=== PATIENT | male | born 1960 | race Caucasian/White ===

== ENCOUNTER → 2018-09-28 | Outpatient (CLI) | payer OTHER ==
[~2018-09-28] VITALS: Ht 172.7 cm; Wt 136.1 kg
[~2018-09-28] MED LIST: CRESTOR20 MG PO; DEMADEX20 MG PO; KLOR-CON 1010 MEQ PO; PREDNISONE 20 M20 MG PO; PROTONIX40 M1 PO; SINGULAIR 10 MG10 M1 PO; TRELEGY ELLIPT1 EACH INH; VENTOLIN HFA 1818 GM INH
--- NOTE | ~2018-09-28 | CATHLAB ---
[facility] [address] [place] [address] INVASIVE PROCEDURE REPORT Name: MANOLO MOSES LUIZ [id number] Admission: 09/28/18 Attend Phys: Miguel Angel Duffy, Discharge: Date of : 62 Date of Service: 09/28/18 0852 Report #: [id number] THIS REPORT FOR: //name// APPROVED REPORT Study performed: 09/28/2018 07:17:54 Patient Details Patient Status: Out-Patient Room #: The patient is a 58 year-old male Event Personnel Miguel Angel Duffy Deputy Director Of Nursing, Micaela Shah RN RN, Yandy Louise RTR, YI Scrmartha, Yandy Louise RTR, ADOBE FLEX DEVELOPER Scrmartha, Pam Dean Monitor Procedures Performed Art Access - R femoral artery* Left Heart Cath w/or w/o Coronaries [id number] [facility] [id number] Initial Mod Sed Same Phys/QHP Gr 529153 66896 Mod Sed Same Phys/QHP Ea 355348 Hemostasis w/ Mynx Indication Chest pain Procedure Narrative The Right Groin^ was infiltrated with 1% Lidocaine subcutaneous anesthesia. A PINNACLE 6FR Sheath #[id number] sheath was inserted into the RFA 6F^. Coronary angiography was performed using coronary diagnostic catheters. The right coronary system was accessed and visualized with a JR4 catheter. The left coronary system was accessed and visualized with a JL4 catheter. The left ventricle was accessed and visualized with a ANGLE PIG catheter. The patient tolerated the procedure well and there were no complications associated with the procedure. There was no hematoma. Intraoperative Conscious Sedation Sedation start time: 0800 Case end Time: 0830 Fentanyl 25 mcg Versed 1 mg Fluoro Time: 1.27 minutes Dose: DAP 4894.30 cGycm2 527 mGy Contrast Type and Amount: Omnipaque 60 ml Diagnostic Cath [facility] [place] [address] INVASIVE PROCEDURE REPORT Name: MANOLO MOSES Room #: [facility] [id number] Admission: 09/28/18 Attend Phys: Miguel Angel Duffy, Discharge: Date of : 62 Date of Service: 09/28/18 0852 Report #: [id number] Left Main Large, normal left main LAD 20-30% proximal to mid LAD plaquing 50-60% stenosis, distal third of LAD Diagonal 1 Large first diagonal branch, angiographically normal Circumflex Large, nondominant circumflex, angiographically normal OM1 Large OM1, angiographically normal Right Coronary Dominant right coronary. Mild scattered plaquing R PDA Large posterior descending, angiographically normal RPLV Large posterior lateral branch, angiographically normal Left Ventriculography The left ventricle is normal in size with normal contractility. The left ventricular ejection fraction is estimated to be 60-65%. Left ventricular wall motion abnormalities are not present. There is 1+ mitral insufficiency. Hemodynamics The aortic pressure is 91/45 mmHg with a mean of 69 mmHg. The left ventricular pressure is 128/-2 mmHg with a mean of mmHg. The left ventricular end diastolic pressure is 11 mmHg. Conclusion 1. Normal global and regional left ventricular systolic function. Ejection fraction 65% 2. Normal left main 3. Moderate scattered mid and distal LAD plaquing 4. Normal circumflex and right coronary arteries. Right coronary dominant circulation Recommendations Aggressive Medical Therapy Weight Loss Reduction Program <ELECTRONICALLY SIGNED> By: Miguel Angel Duffy MD, FACC 09/28/1852 1 1 Miguel Angel Duffy MD, FACC /INF
[2018-09-28 07:05] VITALS: BP 137/77
== END | disposition home or self-care (01) ==
LOC: CATH 06:32
DX: I25.10 Atherosclerotic heart disease of native coronary artery without angina pectoris (principal); I11.0 Hypertensive heart disease with heart failure; I50.30 Unspecified diastolic (congestive) heart failure; E11.9 Type 2 diabetes mellitus without complications; G47.33 Obstructive sleep apnea (adult) (pediatric); E78.5 Hyperlipidemia, unspecified; E66.9 Obesity, unspecified; Z79.899 Other long term (current) drug therapy; Z88.8 Allergy status to other drugs, medicaments and biological substances; Z98.890 Other specified postprocedural states; Z82.49 Family history of ischemic heart disease and other diseases of the circulatory system

== ENCOUNTER 2021-01-08 12:44 | Emergency (ER) | payer OTHER ==
[~2021-01-08] VITALS: Ht 172.7 cm; Wt 135.2 kg
[2021-01-08 13:50] LABS: ABSOLUTE NEUTROPHILS 3.2 thou/uL (1.4-8.2); BASOPHILS 0.6 % (0.0-2.0); EOSINOPHILS 0.9 % (0.0-3.0); HEMATOCRIT 39.7 % (42.0-52.0); HEMOGLOBIN 13.3 gm/dL (14.0-18.0); LYMPHOCYTES 22.5 % (24.0-44.0); MCH 30.7 pg (26.0-34.0); MCHC 33.6 g/dL (28.0-37.0); MCV 91.2 fL (80.0-100.0); MONOCYTES 6.1 % (1.0-8.0); PLATELET COUNT 161 thou/uL (150-400); POLYS 69.9 % (36.0-66.0); RBC 4.35 mil/uL (4.50-6.00); RDW 14.2 % (10.5-14.5); WBC 4.6 thou/uL (4.0-11.0)
[2021-01-08 14:03] LABS: ANION GAP 11 mmol/L (7-16); BUN 9 mg/dL (7-18); CALCIUM 7.9 mg/dL (8.5-10.1); CHLORIDE 105 mmol/L (98-107); CO2 29 mmol/L (21-32); GLUCOSE 187 mg/dL (74-106); POTASSIUM 3.2 mmol/L (3.5-5.1); SODIUM 145 mmol/L (136-145)
[2021-01-08 14:13] LABS: ALBUMIN 2.9 g/dL (3.4-5.0); SGOT 25 U/L (15-37); SGPT 37 U/L (16-63); TOTAL BILIRUBIN 0.3 mg/dL (0.2-1.0); TOTAL PROTEIN 6.5 g/dL (6.4-8.2); TROPONIN-I <0.06 ng/mL (<0.06)
[2021-01-08 15:16] VITALS: BP 125/65
[2021-01-08] MEDS ORDERED: VENTOLIN HFA INH8 GM INH (15:25)
[2021-01-08] MEDS ORDERED: ZPAK PO (15:25)
[2021-01-08] MEDS ORDERED: MEDROLDOSEPACK PO (15:25)
[2021-01-08] MEDS ORDERED: TESSALON PERLE100 MG PO (15:25)
== END 2021-01-08 15:41 | disposition home or self-care (01) ==
LOC: ER 12:44
PROVIDERS: Nurse Practitioner Family
DX: U07.1 COVID-19 (principal); J12.82 Pneumonia due to coronavirus disease 2019; E87.6 Hypokalemia; I11.0 Hypertensive heart disease with heart failure; I50.9 Heart failure, unspecified; E11.9 Type 2 diabetes mellitus without complications; Z79.899 Other long term (current) drug therapy; Z88.0 Allergy status to penicillin

== ENCOUNTER 2021-01-10 05:52 | Emergency (ER) | payer OTHER ==
[~2021-01-10] VITALS: Ht 172.7 cm; Wt 135.2 kg
[~2021-01-10 05:52] MED LIST changes: +MEDROLDOSEPACK PO; +TESSALON PERLE100 MG PO; +VENTOLIN HFA INH8 GM INH; +ZPAK PO
[2021-01-10] MEDS ORDERED: CODEINE-GUAIFE120 ML PO (07:53)
[2021-01-10] MEDS ORDERED: DECADRON4 MG PO (07:58)
[2021-01-10 08:17] VITALS: BP 147/86
== END 2021-01-10 08:19 | disposition home or self-care (01) ==
LOC: ER 05:52
DX: U07.1 COVID-19 (principal); J12.82 Pneumonia due to coronavirus disease 2019; I11.0 Hypertensive heart disease with heart failure; I50.9 Heart failure, unspecified; E11.9 Type 2 diabetes mellitus without complications; Z79.899 Other long term (current) drug therapy; Z88.0 Allergy status to penicillin

== ENCOUNTER 2021-01-12 01:55 | Inpatient (IN) | payer OTHER ==
[2021-01-12] VITALS (33 sets, daily range): BP systolic 104–141; BP diastolic 53–85
[~2021-01-12] VITALS: Ht 172.7 cm; Wt 120.5 kg
--- NOTE | ~2021-01-12 | EKG ---
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: GAYATRI : 1960 Requested By: Jose Alegria Order Number: [id number] MD: Measurements Intervals [place] Rate: 158 P: [place]: QRS: -78 QRSD: 91 T: 238 QT: 333 QTc: 540 Interpretive Statements Atrial flutter with predominant 2:1 AV block Ventricular premature complex RSR' in V1 or V2, right VCD or RVH Inferior infarct, age indeterminate Lateral leads are also involved Prolonged QT interval Baseline wander in lead(s) V2,V5 Compared to ECG 01/29/2021 20:06:30 2:1 AV block now present Ventricular premature complex(es) now present Right ventricular hypertrophy now present RSR' in V1 or V2 now present Myocardial infarct finding now present Prolonged QT interval now present Atrial fibrillation no longer present Q waves no longer present T-wave abnormality no longer present [email or web address] By: 1140 1140 Epiphany MD Ricki /ANTELMO
[~2021-01-12 01:55] MED LIST changes: +CODEINE-GUAIFE120 ML PO; +DECADRON4 MG PO
[2021-01-12 02:26] LABS: ABSOLUTE NEUTROPHILS 7.2 thou/uL (1.4-8.2); BASOPHILS 0.2 % (0.0-2.0); HEMATOCRIT 41.5 % (42.0-52.0); HEMOGLOBIN 13.8 gm/dL (14.0-18.0); LYMPHOCYTES 11.6 % (24.0-44.0); MCH 30.4 pg (26.0-34.0); MCHC 33.2 g/dL (28.0-37.0); MCV 91.7 fL (80.0-100.0); MONOCYTES 4.6 % (1.0-8.0); PLATELET COUNT 269 thou/uL (150-400); POLYS 83.6 % (36.0-66.0); RBC 4.53 mil/uL (4.50-6.00); RDW 14.4 % (10.5-14.5); WBC 8.6 thou/uL (4.0-11.0)
[2021-01-12 02:27] LABS: ANION GAP 8 mmol/L (7-16); BUN 17 mg/dL (7-18); CALCIUM 8.5 mg/dL (8.5-10.1); CHLORIDE 102 mmol/L (98-107); CO2 28 mmol/L (21-32); CREATININE 1.1 mg/dL (0.7-1.3); GLUCOSE 130 mg/dL (74-106); POTASSIUM 4.2 mmol/L (3.5-5.1); SODIUM 138 mmol/L (136-145)
[2021-01-12 02:37] LABS: ALBUMIN 2.9 g/dL (3.4-5.0); SGOT 42 U/L (15-37); SGPT 46 U/L (16-63); TOTAL BILIRUBIN 0.7 mg/dL (0.2-1.0); TOTAL PROTEIN 7.4 g/dL (6.4-8.2); TROPONIN-I <0.06 ng/mL (<0.06)
[2021-01-12 02:45] LABS: BE(vivo) 2.5 mmol/L (-2 to +3); HCO3 26.3 mmol/L (22.0-26.0); PCO2 38.1 mmHg (35.0-45.0); PO2 93.5 mmHg (80.0-100.0); pH 7.457 (7.360-7.450); sO2 97.5 % (92.0-98.0)
[2021-01-12 06:17] LABS: INR 0.94; PROTIME 10.3 Seconds (9.3-11.4)
[2021-01-12 07:28] LABS: URINE BILIRUBIN NEGATIVE (Negative); URINE BLOOD NEGATIVE (Negative); URINE CLARITY CLEAR; URINE COLOR YELLOW; URINE GLUCOSE-RANDOM* NEGATIVE (Negative); URINE KETONES NEGATIVE (Negative); URINE LEUKOCYTES-REFLEX NEGATIVE (Negative); URINE NITRITE-REFLEX NEGATIVE (Negative); URINE PROTEIN (DIPSTICK) NEGATIVE (Negative); URINE UROBILINOGEN 0.2 E.U./dl (0.2-1.0)
--- NOTE | 2021-01-12 12:40 | EKG ---
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: am : 1960 Requested By: Masha Cherry Order Number: [id number] MD: Miguel Angel Duffy Measurements Intervals [place] Rate: 97 P: 55 MO: 149 QRS: -10 QRSD: 81 T: 26 QT: 329 QTc: 418 Interpretive Statements Sinus rhythm RSR' in V1 or V2, right VCD No previous ECG available for comparison Electronically Signed On 01-12-2021 12:40:27 CDT by Miguel Angel Duffy [email or web address] <ELECTRONICALLY SIGNED> By: Miguel Angel Duffy MD, [facility] 01/12/21 1240 0236 0236 Miguel Angel Duffy MD, FACC /EPI
[2021-01-13] VITALS (23 sets, daily range): BP systolic 90–134; BP diastolic 39–86
[2021-01-13 05:12] LABS: HEMATOCRIT 40.8 % (42.0-52.0); HEMOGLOBIN 13.4 gm/dL (14.0-18.0); MCH 30.3 pg (26.0-34.0); MCHC 32.8 g/dL (28.0-37.0); MCV 92.3 fL (80.0-100.0); RBC 4.42 mil/uL (4.50-6.00); RDW 14.9 % (10.5-14.5); WBC 5.3 thou/uL (4.0-11.0)
[2021-01-13 05:16] LABS: DIRECT BILIRUBIN 0.2 mg/dL (<0.1-0.2); PHOSPHORUS 4.1 mg/dL (2.5-4.9)
[2021-01-13 05:20] LABS: ALBUMIN 2.7 g/dL (3.4-5.0); CALCIUM 7.8 mg/dL (8.5-10.1); CREATININE 1.1 mg/dL (0.7-1.3); POTASSIUM 3.6 mmol/L (3.5-5.1); TOTAL BILIRUBIN 0.5 mg/dL (0.2-1.0); TOTAL PROTEIN 6.5 g/dL (6.4-8.2)
--- NOTE | 2021-01-13 11:56 | HC ---
[facility] [place] [address] CONSULTATION Name: MANOLO MOSES Room #: 236-P ADM IN M.R.#: [id number] Admission: 01/12/21 Attend Phys: Raimundo Murray Discharge: Date of : 62 Report #: [id number] THIS REPORT FOR: cc: Julian Tatum MD, John H. MD Barry, Joseph W. MD ~ DATE OF SERVICE: 01/12/2021 INFECTIOUS DISEASE CONSULTATION ATTENDING PHYSICIAN: Dr. Murray. REASON FOR EVALUATION: COVID-19 infection, complicated by pneumonitis, respiratory failure. HISTORY OF PRESENT ILLNESS: Chart reviewed, patient examined. This is a 60-year-old with history of diabetes mellitus, obstructive sleep apnea, does have cardiomyopathy as well, who became ill last week and developed some fevers, cough, initially tested for COVID-19, which proved to be positive on the 2nd. He was evaluated 3 times of the Emergency Room, the second, fourth and today had progressive signs and symptoms in spite of corticosteroids, systemic antibacterials, found to have temperature in excess of 101.5, progressive dyspnea, now requiring supplemental oxygen high flow, high concentration at 50 liters per minute, FiO2 of 50%. He is in the ICU. Generally, he is lucid. He denies significant pain at this point. Does have productive cough of colored sputum. Denies any anorexia or poor p.o. intake. Denies any gastrointestinal-related complaints. He was empirically started on broad-spectrum therapy in addition to ivermectin and remdesivir. He is continued on methylprednisolone, given a dose of albuterol and levofloxacin. ALLERGIES: Listed to PENICILLIN ____ throat swells. CURRENT MEDICATIONS: In addition, noted above, montelukast, torsemide, alteplase, insulin lispro sliding scale, pantoprazole, benzonatate, hydrocodone, diphenhydramine. PAST MEDICAL HISTORY: As described above, history of diabetes mellitus type 2, hypertension, has cardiomyopathy, obstructive sleep apnea, history of asthma. SOCIAL HISTORY: Nonsmoker, occasional ethanol, no illicit drug use. FAMILY HISTORY: Noncontributory. REVIEW OF SYSTEMS: Otherwise unremarkable with the exception of the above. [facility] [address] [place] [address] CONSULTATION Name: MANOLO MOSES Room #: [facility] IN M.R.#: [id number] Admission: 01/12/21 Attend Phys: Raimundo Murray Discharge: Date of : 62 Report #: [id number] PHYSICAL EXAMINATION: GENERAL: He is in moderate distress. He is generally lucid. He is obese. He is reasonably well nourished. VITAL SIGNS: Temperature 98.5, T-max overnight 100.6, pulse 86, respirations 26, blood pressure 140/73. SKIN: Warm, dry, no rashes. HEENT: Nasal cannula in place. Extraocular muscles intact. NECK: Supple. LUNGS: Scattered coarse breath sounds. HEART: Generally regular. ABDOMEN: Mildly distended, somewhat firm, nontender. EXTREMITIES: No cyanosis. GENITOURINARY AND RECTAL: Deferred. LABORATORY DATA: Urinalysis unremarkable. CTA chest PE protocol, question of small pulmonary emboli, no large emboli, extensive diffuse bilateral pulmonary alveolar infiltrates. Lactic acid 1.6. Procalcitonin less than 0.05. ABGs; pH 7.457, pCO2 of 31, pO2 of 93.5, FiO2 of 85%. ProBNP of 205. D-dimer 1.01. Electrolytes: Sodium 138, potassium 4.2, chloride 102, bicarbonate 20, anion gap of 8, BUN and creatinine 17 and 1.1, glucose of 130. AST of 42, ALT of 46, albumin 2.9, total protein 7.4. Estimated GFR of 69. CBC: White count of 8.6, H and H 13.8 and 41.5, platelets of 269. Blood cultures collected on the 2nd reported sterile thus far. ASSESSMENT: 1. COVID-19 infection, complicated by pneumonitis and respiratory failure with acute respiratory distress syndrome. 2. Diabetes mellitus. 3. Cardiomyopathy with congestive heart failure. 4. Asthma. 5. Obesity. We will continue broad-spectrum therapy directed ____ toward the coronavirus and give Actemra. In addition to the corticosteroids, also add vitamins as well as continue antibacterials, may have secondary bacterial pneumonitis. We will await sputum culture results. He remains quite tenuous at this point. Continue to monitor expectantly. Wean off support as allowed. <ELECTRONICALLY SIGNED> By: Jose Cortes MD 01/13/21 1156 0857 1018 Jose Cortes MD /nt
[2021-01-14] VITALS (24 sets, daily range): BP systolic 96–118; BP diastolic 50–78
[2021-01-14 04:56] LABS: BE(vivo) 6.7 mmol/L (-2 to +3); HCO3 31.9 mmol/L (22.0-26.0); PCO2 47.1 mmHg (35.0-45.0); PO2 84.2 mmHg (80.0-100.0); pH 7.448 (7.360-7.450); sO2 96.6 % (92.0-98.0)
[2021-01-14 05:16] LABS: BASOPHILS 0.2 % (0.0-2.0); HEMATOCRIT 41.8 % (42.0-52.0); HEMOGLOBIN 13.7 gm/dL (14.0-18.0); LYMPHOCYTES 5.8 % (24.0-44.0); MCH 30.1 pg (26.0-34.0); MCHC 32.7 g/dL (28.0-37.0); MONOCYTES 6.2 % (1.0-8.0); PLATELET COUNT 336 thou/uL (150-400); POLYS 87.8 % (36.0-66.0); RBC 4.54 mil/uL (4.50-6.00); RDW 14.3 % (10.5-14.5); WBC 9.1 thou/uL (4.0-11.0)
[2021-01-14 05:51] LABS: ALBUMIN 2.5 g/dL (3.4-5.0); CREATININE 1.1 mg/dL (0.7-1.3); DIRECT BILIRUBIN 0.1 mg/dL (<0.1-0.2); PHOSPHORUS 4.3 mg/dL (2.5-4.9); POTASSIUM 3.5 mmol/L (3.5-5.1); TOTAL BILIRUBIN 0.4 mg/dL (0.2-1.0); TOTAL PROTEIN 6.8 g/dL (6.4-8.2)
[2021-01-14 22:06] LABS: GLYCOHEMOGLOBIN (HGB A1C) 7.7 % (4.8-5.6)
[2021-01-15] VITALS (24 sets, daily range): BP systolic 95–135; BP diastolic 31–93
[2021-01-15 05:19] LABS: ALBUMIN 2.5 g/dL (3.4-5.0); CREATININE 1.2 mg/dL (0.7-1.3); DIRECT BILIRUBIN 0.2 mg/dL (<0.1-0.2); PHOSPHORUS 4.3 mg/dL (2.5-4.9); POTASSIUM 3.5 mmol/L (3.5-5.1); TOTAL BILIRUBIN 0.5 mg/dL (0.2-1.0); TOTAL PROTEIN 6.6 g/dL (6.4-8.2)
[2021-01-16] VITALS (22 sets, daily range): BP systolic 113–145; BP diastolic 62–99
[2021-01-16 05:30] LABS: ALBUMIN 2.7 g/dL (3.4-5.0); CALCIUM 8.3 mg/dL (8.5-10.1); CREATININE 1.2 mg/dL (0.7-1.3); DIRECT BILIRUBIN 0.2 mg/dL (<0.1-0.2); PHOSPHORUS 4.3 mg/dL (2.5-4.9); POTASSIUM 3.4 mmol/L (3.5-5.1); TOTAL BILIRUBIN 0.7 mg/dL (0.2-1.0); TOTAL PROTEIN 6.8 g/dL (6.4-8.2)
[2021-01-17] VITALS (24 sets, daily range): BP systolic 113–137; BP diastolic 65–86
[2021-01-17 05:17] LABS: ALBUMIN 2.7 g/dL (3.4-5.0); CALCIUM 8.3 mg/dL (8.5-10.1); CREATININE 1.2 mg/dL (0.7-1.3); PHOSPHORUS 3.9 mg/dL (2.5-4.9); POTASSIUM 3.3 mmol/L (3.5-5.1)
[2021-01-18] VITALS (19 sets, daily range): BP systolic 87–130; BP diastolic 44–80
[2021-01-18 09:29] LABS: HEMATOCRIT 45.4 % (42.0-52.0); HEMOGLOBIN 15.1 gm/dL (14.0-18.0); MCH 30.2 pg (26.0-34.0); MCHC 33.3 g/dL (28.0-37.0); MCV 90.8 fL (80.0-100.0); PLATELET COUNT 325 thou/uL (150-400); RDW 13.8 % (10.5-14.5); WBC 18.7 thou/uL (4.0-11.0)
[2021-01-18 10:03] LABS: ABSOLUTE NEUTROPHILS 17.2 thou/uL (1.4-8.2); PLATELET ESTIMATE NORMAL
[2021-01-18 10:05] LABS: ALBUMIN 2.7 g/dL (3.4-5.0); CALCIUM 8.8 mg/dL (8.5-10.1); CREATININE 1.2 mg/dL (0.7-1.3); POTASSIUM 3.6 mmol/L (3.5-5.1); TOTAL BILIRUBIN 0.9 mg/dL (0.2-1.0); TOTAL PROTEIN 6.6 g/dL (6.4-8.2)
[2021-01-19 04:14] VITALS: BP 118/48
[2021-01-19 06:59] VITALS: BP 126/77
[2021-01-19 15:19] VITALS: BP 112/65
[2021-01-19 20:04] VITALS: BP 128/78
[2021-01-20 04:45] VITALS: BP 128/71
[2021-01-20 07:33] VITALS: BP 112/61
[2021-01-20 11:09] LABS: BE(vivo) 4.8 mmol/L (-2 to +3); HCO3 28.5 mmol/L (22.0-26.0); PCO2 38.9 mmHg (35.0-45.0); pH 7.483 (7.360-7.450); sO2 90.2 % (92.0-98.0)
[2021-01-20 11:10] LABS: PO2 53.8 mmHg (80.0-100.0)
[2021-01-20 13:08] LABS: HEMATOCRIT 42.9 % (42.0-52.0); HEMOGLOBIN 14.2 gm/dL (14.0-18.0); MCH 30.3 pg (26.0-34.0); MCHC 33.2 g/dL (28.0-37.0); MCV 91.5 fL (80.0-100.0); RBC 4.68 mil/uL (4.50-6.00); RDW 14.3 % (10.5-14.5); WBC 20.1 thou/uL (4.0-11.0)
[2021-01-20 15:53] VITALS: BP 113/60
[2021-01-20 19:47] VITALS: BP 129/84
[2021-01-21 04:33] VITALS: BP 111/65
[2021-01-21 07:22] VITALS: BP 124/84
[2021-01-21 15:07] LABS: HEMATOCRIT 44.6 % (42.0-52.0); HEMOGLOBIN 14.8 gm/dL (14.0-18.0); MCH 30.3 pg (26.0-34.0); MCHC 33.2 g/dL (28.0-37.0); MCV 91.2 fL (80.0-100.0); RBC 4.89 mil/uL (4.50-6.00); RDW 14.1 % (10.5-14.5); WBC 21.1 thou/uL (4.0-11.0)
[2021-01-21 15:18] LABS: CALCIUM 8.3 mg/dL (8.5-10.1); CREATININE 1.3 mg/dL (0.7-1.3)
[2021-01-21 15:52] VITALS: BP 109/69
[2021-01-21 19:06] VITALS: BP 130/76
[2021-01-22 03:48] VITALS: BP 115/67
[2021-01-22 07:20] VITALS: BP 137/85
[2021-01-22 09:21] LABS: HEMOGLOBIN 14.7 gm/dL (14.0-18.0); MCHC 32.6 g/dL (28.0-37.0); MCV 91.9 fL (80.0-100.0); PLATELET COUNT 215 thou/uL (150-400); RDW 14.4 % (10.5-14.5); WBC 21.1 thou/uL (4.0-11.0)
[2021-01-22 10:24] LABS: ABSOLUTE NEUTROPHILS 20.3 thou/uL (1.4-8.2)
[2021-01-22 10:28] LABS: ANISOCYTOSIS SLIGHT
[2021-01-22 15:13] VITALS: BP 109/76
[2021-01-22 19:45] VITALS: BP 101/69
[2021-01-23] VITALS (21 sets, daily range): BP systolic 95–135; BP diastolic 51–81
[2021-01-23 00:02] LABS: BE(vivo) 7.9 mmol/L (-2 to +3); HCO3 34.1 mmol/L (22.0-26.0); PCO2 52.6 mmHg (35.0-45.0); PO2 58.2 mmHg (80.0-100.0); pH 7.429 (7.360-7.450); sO2 90.5 % (92.0-98.0)
[2021-01-23 04:13] LABS: MAGNESIUM 2.3 mg/dL (1.8-2.4); POTASSIUM 3.8 mmol/L (3.5-5.1)
[2021-01-24] VITALS (24 sets, daily range): BP systolic 99–160; BP diastolic 48–111
[2021-01-24 04:36] LABS: HEMATOCRIT 44.1 % (42.0-52.0); HEMOGLOBIN 14.3 gm/dL (14.0-18.0); MCH 29.8 pg (26.0-34.0); MCHC 32.3 g/dL (28.0-37.0); MCV 92.3 fL (80.0-100.0); RBC 4.78 mil/uL (4.50-6.00); RDW 14.3 % (10.5-14.5); WBC 18.2 thou/uL (4.0-11.0)
[2021-01-24 05:19] LABS: ALBUMIN 2.3 g/dL (3.4-5.0); CALCIUM 7.9 mg/dL (8.5-10.1); MAGNESIUM 2.6 mg/dL (1.8-2.4); PHOSPHORUS 3.8 mg/dL (2.5-4.9); POTASSIUM 4.1 mmol/L (3.5-5.1); TOTAL BILIRUBIN 0.6 mg/dL (0.2-1.0); TOTAL PROTEIN 5.3 g/dL (6.4-8.2)
[2021-01-25] VITALS (115 sets, daily range): BP systolic 83–155; BP diastolic 46–86
[2021-01-25 05:44] LABS: CALCIUM 8.3 mg/dL (8.5-10.1); POTASSIUM 4.4 mmol/L (3.5-5.1)
[2021-01-25 05:48] LABS: MAGNESIUM 2.6 mg/dL (1.8-2.4); PHOSPHORUS 3.9 mg/dL (2.5-4.9)
[2021-01-25 13:27] LABS: HEMATOCRIT 45.3 % (42.0-52.0); HEMOGLOBIN 14.6 gm/dL (14.0-18.0); MCH 30.4 pg (26.0-34.0); MCHC 32.3 g/dL (28.0-37.0); MCV 94.3 fL (80.0-100.0); PLATELET COUNT 181 thou/uL (150-400); RDW 14.9 % (10.5-14.5); WBC 20.9 thou/uL (4.0-11.0)
[2021-01-25 14:06] LABS: ABSOLUTE NEUTROPHILS 19.9 thou/uL (1.4-8.2)
[2021-01-25 15:08] LABS: BE(vivo) -0.6 mmol/L (-2 to +3); HCO3 28.7 mmol/L (22.0-26.0); PCO2 68.3 mmHg (35.0-45.0); PO2 85.6 mmHg (80.0-100.0); pH 7.242 (7.360-7.450); sO2 94.5 % (92.0-98.0)
[2021-01-25 17:53] LABS: BE(vivo) -2.3 mmol/L (-2 to +3); PCO2 73.7 mmHg (35.0-45.0); PO2 67.3 mmHg (80.0-100.0); pH 7.198 (7.360-7.450); sO2 88.2 % (92.0-98.0)
[2021-01-25 20:55] LABS: BE(vivo) -0.7 mmol/L (-2 to +3); HCO3 28.7 mmol/L (22.0-26.0); PCO2 68.2 mmHg (35.0-45.0); PO2 77.5 mmHg (80.0-100.0); pH 7.242 (7.360-7.450); sO2 92.9 % (92.0-98.0)
[2021-01-25 23:10] LABS: D-DIMER 14.29 ug/mLFEU (0.19-0.50); INR 1.24; PROTIME 13.4 Seconds (9.3-11.4)
[2021-01-26] VITALS (94 sets, daily range): BP systolic 89–133; BP diastolic 49–70
[2021-01-26 00:59] LABS: BE(vivo) -1.7 mmol/L (-2 to +3); HCO3 28.1 mmol/L (22.0-26.0); PCO2 70.2 mmHg (35.0-45.0); PO2 92.5 mmHg (80.0-100.0); sO2 95.3 % (92.0-98.0)
[2021-01-26 05:16] LABS: HEMATOCRIT 45.2 % (42.0-52.0); HEMOGLOBIN 14.4 gm/dL (14.0-18.0); MCH 30.3 pg (26.0-34.0); MCHC 31.8 g/dL (28.0-37.0); MCV 95.2 fL (80.0-100.0); RBC 4.74 mil/uL (4.50-6.00); WBC 27.3 thou/uL (4.0-11.0)
[2021-01-26 05:38] LABS: CALCIUM 7.8 mg/dL (8.5-10.1); MAGNESIUM 2.6 mg/dL (1.8-2.4); PHOSPHORUS 5.2 mg/dL (2.5-4.9)
[2021-01-26 05:40] LABS: POTASSIUM 5.4 mmol/L (3.5-5.1)
[2021-01-26 14:13] LABS: BE(vivo) -1.7 mmol/L (-2 to +3); PCO2 88.4 mmHg (35.0-45.0); PO2 90.2 mmHg (80.0-100.0); pH 7.148 (7.360-7.450); sO2 93.8 % (92.0-98.0)
[2021-01-26 21:43] LABS: BE(vivo) 6.2 mmol/L (-2 to +3); HCO3 35.9 mmol/L (22.0-26.0); PCO2 77.3 mmHg (35.0-45.0); PO2 125.7 mmHg (80.0-100.0); pH 7.285 (7.360-7.450)
[2021-01-27] VITALS (72 sets, daily range): BP systolic 83–122; BP diastolic 42–68
[2021-01-27 03:16] LABS: HEMATOCRIT 42.7 % (42.0-52.0); HEMOGLOBIN 13.5 gm/dL (14.0-18.0); MCH 29.6 pg (26.0-34.0); MCHC 31.5 g/dL (28.0-37.0); MCV 93.9 fL (80.0-100.0); PLATELET COUNT 103 thou/uL (150-400); RBC 4.54 mil/uL (4.50-6.00); RDW 14.8 % (10.5-14.5); WBC 20.9 thou/uL (4.0-11.0)
[2021-01-27 03:35] LABS: MAGNESIUM 2.5 mg/dL (1.8-2.4)
[2021-01-27 03:36] LABS: ALBUMIN 2.2 g/dL (3.4-5.0); CALCIUM 7.8 mg/dL (8.5-10.1); CREATININE 0.7 mg/dL (0.7-1.3); POTASSIUM 4.6 mmol/L (3.5-5.1); TOTAL BILIRUBIN 0.5 mg/dL (0.2-1.0); TOTAL PROTEIN 4.8 g/dL (6.4-8.2)
[2021-01-27 05:02] LABS: BE(vivo) 3.1 mmol/L (-2 to +3); HCO3 31.2 mmol/L (22.0-26.0); PCO2 63.3 mmHg (35.0-45.0); PO2 97.9 mmHg (80.0-100.0); sO2 96.7 % (92.0-98.0)
[2021-01-27 11:24] LABS: ABSOLUTE NEUTROPHILS 19.9 thou/uL (1.4-8.2)
[2021-01-27 11:25] LABS: ANISOCYTOSIS 1+
[2021-01-28] VITALS (81 sets, daily range): BP systolic 79–134; BP diastolic 43–67
[2021-01-28 05:08] LABS: BE(vivo) 4.5 mmol/L (-2 to +3); HCO3 33.1 mmol/L (22.0-26.0); PCO2 69.7 mmHg (35.0-45.0); PO2 86.8 mmHg (80.0-100.0); sO2 95.3 % (92.0-98.0)
[2021-01-28 05:09] LABS: pH 7.295 (7.360-7.450)
[2021-01-28 05:24] LABS: HEMATOCRIT 40.2 % (42.0-52.0); HEMOGLOBIN 12.9 gm/dL (14.0-18.0); MCH 30.4 pg (26.0-34.0); MCHC 32.2 g/dL (28.0-37.0); MCV 94.5 fL (80.0-100.0); RBC 4.25 mil/uL (4.50-6.00); RDW 14.7 % (10.5-14.5); WBC 16.1 thou/uL (4.0-11.0)
[2021-01-28 06:07] LABS: CALCIUM 8.3 mg/dL (8.5-10.1); CREATININE 0.8 mg/dL (0.7-1.3); POTASSIUM 4.9 mmol/L (3.5-5.1)
--- NOTE | 2021-01-28 08:44 | EKG ---
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 : 1960 Requested By: Raimunod Murray Order Number: [id number] MD: Miguel Angel Duffy Measurements Intervals [place] Rate: 151 P: [place]: QRS: 51 QRSD: 69 T: QT: 339 QTc: 538 Interpretive Statements Atrial fibrillation Low voltage, precordial leads Nonspecific ST and T wave abnormality Prolonged QT interval Baseline wander in lead(s) V1 Compared to ECG 01/12/2021 02:36:19 Prolonged QT interval now present Sinus rhythm no longer present Electronically Signed On 01-28-2021 8:44:21 CDT by Miguel Angel Duffy [email or web address] <ELECTRONICALLY SIGNED> By: Miguel Angel Duffy MD, [facility] 01/28/21 0844 [id number] 2323 Miguel Angel Duffy MD, [facility] /EPI
[2021-01-29] VITALS (41 sets, daily range): BP systolic 100–157; BP diastolic 50–82
[2021-01-29 04:34] LABS: BE(vivo) 8.5 mmol/L (-2 to +3); HCO3 35.8 mmol/L (22.0-26.0); PCO2 62.7 mmHg (35.0-45.0); PO2 82.5 mmHg (80.0-100.0); pH 7.375 (7.360-7.450); sO2 95.6 % (92.0-98.0)
[2021-01-29 11:00] LABS: ABSOLUTE NEUTROPHILS 12.5 thou/uL (1.4-8.2); BASOPHILS 0.3 % (0.0-2.0); HEMATOCRIT 37.1 % (42.0-52.0); HEMOGLOBIN 11.8 gm/dL (14.0-18.0); LYMPHOCYTES 1.8 % (24.0-44.0); MCH 29.9 pg (26.0-34.0); MCHC 31.9 g/dL (28.0-37.0); MCV 93.9 fL (80.0-100.0); MONOCYTES 4.7 % (1.0-8.0); PLATELET COUNT 96 thou/uL (150-400); POLYS 93.2 % (36.0-66.0); RBC 3.96 mil/uL (4.50-6.00); RDW 14.6 % (10.5-14.5); WBC 13.4 thou/uL (4.0-11.0)
[2021-01-29 11:08] LABS: ALBUMIN 2.1 g/dL (3.4-5.0); CALCIUM 8.3 mg/dL (8.5-10.1); CREATININE 0.6 mg/dL (0.7-1.3); POTASSIUM 4.4 mmol/L (3.5-5.1); TOTAL BILIRUBIN 0.4 mg/dL (0.2-1.0); TOTAL PROTEIN 4.6 g/dL (6.4-8.2)
[2021-01-30] VITALS (48 sets, daily range): BP systolic 93–159; BP diastolic 53–85
[2021-01-30 09:21] LABS: ABSOLUTE NEUTROPHILS 13.8 thou/uL (1.4-8.2); HEMATOCRIT 36.2 % (42.0-52.0); HEMOGLOBIN 11.9 gm/dL (14.0-18.0); LYMPHOCYTES 1.2 % (24.0-44.0); MCH 30.6 pg (26.0-34.0); MCHC 32.8 g/dL (28.0-37.0); MCV 93.2 fL (80.0-100.0); MONOCYTES 4.8 % (1.0-8.0); PLATELET COUNT 82 thou/uL (150-400); RBC 3.89 mil/uL (4.50-6.00); RDW 14.8 % (10.5-14.5); WBC 14.8 thou/uL (4.0-11.0)
[2021-01-30 09:34] LABS: CALCIUM 8.2 mg/dL (8.5-10.1); CREATININE 0.7 mg/dL (0.7-1.3); POTASSIUM 4.7 mmol/L (3.5-5.1); TOTAL BILIRUBIN 0.5 mg/dL (0.2-1.0); TOTAL PROTEIN 4.8 g/dL (6.4-8.2)
--- NOTE | 2021-01-30 11:14 | EKG ---
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: FSCHWALBE : 1960 Requested By: Juan Luis Thomas Order Number: [id number] MD: Miguel Angel Duffy Measurements Intervals [place] Rate: 127 P: [place]: QRS: 57 QRSD: 78 T: 51 QT: 306 QTc: 445 Interpretive Statements Atrial fibrillation Small septal Q waves Nonspecific T wave abnormality Compared to ECG 01/27/2021 23:23:16 QT interval has shortened Electronically Signed On 01-30-2021 11:14:19 CDT by Miguel Angel Duffy [email or web address] <ELECTRONICALLY SIGNED> By: Miguel Angel Duffy MD, [facility] 01/30/21 1114 05 05 Miguel Angel Duffy MD, FACC /EPI
[2021-01-31] VITALS (48 sets, daily range): BP systolic 97–138; BP diastolic 50–74
[2021-01-31 06:31] LABS: HEMATOCRIT 33.9 % (42.0-52.0); HEMOGLOBIN 11.3 gm/dL (14.0-18.0); MCH 31.2 pg (26.0-34.0); MCHC 33.3 g/dL (28.0-37.0); MCV 93.6 fL (80.0-100.0); RBC 3.62 mil/uL (4.50-6.00); RDW 14.8 % (10.5-14.5); WBC 12.6 thou/uL (4.0-11.0)
[2021-01-31 09:58] LABS: ABSOLUTE NEUTROPHILS 11.8 thou/uL (1.4-8.2); ANISOCYTOSIS SLIGHT
[2021-01-31 10:02] LABS: PLATELET COUNT 93 thou/uL (150-400)
[2021-02-01] VITALS (37 sets, daily range): BP systolic 92–126; BP diastolic 48–79
[2021-02-01 20:12] LABS: BE(vivo) 7.9 mmol/L (-2 to +3); HCO3 33.6 mmol/L (22.0-26.0); PCO2 51.9 mmHg (35.0-45.0); PO2 79.7 mmHg (80.0-100.0); pH 7.429 (7.360-7.450); sO2 95.9 % (92.0-98.0)
[2021-02-02] VITALS (48 sets, daily range): BP systolic 96–150; BP diastolic 55–85
[2021-02-02 10:26] LABS: HEMATOCRIT 35.4 % (42.0-52.0); HEMOGLOBIN 11.7 gm/dL (14.0-18.0); MCHC 33.1 g/dL (28.0-37.0); MCV 93.7 fL (80.0-100.0); PLATELET COUNT 75 thou/uL (150-400); RBC 3.78 mil/uL (4.50-6.00); RDW 14.8 % (10.5-14.5); WBC 11.4 thou/uL (4.0-11.0)
[2021-02-02 11:02] LABS: ALBUMIN 1.9 g/dL (3.4-5.0); CREATININE 0.6 mg/dL (0.7-1.3); POTASSIUM 4.9 mmol/L (3.5-5.1); TOTAL BILIRUBIN 0.5 mg/dL (0.2-1.0); TOTAL PROTEIN 4.8 g/dL (6.4-8.2)
[2021-02-02 11:22] LABS: ABSOLUTE NEUTROPHILS 10.6 thou/uL (1.4-8.2)
[2021-02-02 11:23] LABS: PLATELET ESTIMATE DECREASED
[2021-02-03] VITALS (52 sets, daily range): BP systolic 84–134; BP diastolic 33–85
[2021-02-03 11:25] LABS: ALBUMIN 1.7 g/dL (3.4-5.0); CALCIUM 7.1 mg/dL (8.5-10.1); CREATININE 0.8 mg/dL (0.7-1.3); POTASSIUM 4.3 mmol/L (3.5-5.1); TOTAL PROTEIN 4.3 g/dL (6.4-8.2)
[2021-02-04] VITALS (27 sets, daily range): BP systolic 85–119; BP diastolic 35–78
[2021-02-04 19:07] LABS: BE(vivo) 9.1 mmol/L (-2 to +3); HCO3 34.2 mmol/L (22.0-26.0); PCO2 49.2 mmHg (35.0-45.0); PO2 84.3 mmHg (80.0-100.0); sO2 96.7 % (92.0-98.0)
[2021-02-05] VITALS (24 sets, daily range): BP systolic 87–131; BP diastolic 42–70
[2021-02-05 04:55] LABS: BE(vivo) 9.3 mmol/L (-2 to +3); HCO3 34.1 mmol/L (22.0-26.0); PCO2 47.4 mmHg (35.0-45.0); PO2 68.3 mmHg (80.0-100.0); pH 7.475 (7.360-7.450); sO2 94.6 % (92.0-98.0)
[2021-02-05 22:11] LABS: HEMATOCRIT 34.7 % (42.0-52.0); HEMOGLOBIN 11.6 gm/dL (14.0-18.0); MCH 31.5 pg (26.0-34.0); MCHC 33.6 g/dL (28.0-37.0); MCV 93.7 fL (80.0-100.0); PLATELET COUNT 113 thou/uL (150-400)
[2021-02-05 22:25] LABS: INR 0.98; PROTIME 10.7 Seconds (10.5-12.1)
[2021-02-05 23:05] LABS: ABSOLUTE NEUTROPHILS 7.8 thou/uL (1.4-8.2); METAMYELOCYTES 2 %; MYELOCYTES 1 %
[2021-02-06] VITALS (29 sets, daily range): BP systolic 88–141; BP diastolic 34–81
[2021-02-07] VITALS (224 sets, daily range): BP systolic 79–138; BP diastolic 34–70
[2021-02-07 10:52] LABS: BE(vivo) 11.5 mmol/L (-2 to +3); HCO3 38.2 mmol/L (22.0-26.0); PCO2 60.2 mmHg (35.0-45.0); PO2 73.2 mmHg (80.0-100.0); sO2 94.6 % (92.0-98.0)
[2021-02-08] VITALS (157 sets, daily range): BP systolic 84–145; BP diastolic 36–77
[2021-02-08 10:38] LABS: ALBUMIN 2.5 g/dL (3.4-5.0); CALCIUM 8.4 mg/dL (8.5-10.1); CREATININE 0.5 mg/dL (0.7-1.3); POTASSIUM 4.2 mmol/L (3.5-5.1); TOTAL BILIRUBIN 0.7 mg/dL (0.2-1.0); TOTAL PROTEIN 5.4 g/dL (6.4-8.2)
[2021-02-09] VITALS (24 sets, daily range): BP systolic 94–125; BP diastolic 42–65
[2021-02-09 04:55] LABS: HEMATOCRIT 35.7 % (42.0-52.0); HEMOGLOBIN 11.5 gm/dL (14.0-18.0); MCH 30.4 pg (26.0-34.0); MCHC 32.1 g/dL (28.0-37.0); MCV 94.8 fL (80.0-100.0); RBC 3.77 mil/uL (4.50-6.00); RDW 15.3 % (10.5-14.5); WBC 11.4 thou/uL (4.0-11.0)
[2021-02-09 09:07] LABS: ALBUMIN 2.7 g/dL (3.4-5.0); CALCIUM 8.5 mg/dL (8.5-10.1); CREATININE 0.5 mg/dL (0.7-1.3); POTASSIUM 4.1 mmol/L (3.5-5.1); TOTAL BILIRUBIN 0.8 mg/dL (0.2-1.0); TOTAL PROTEIN 5.3 g/dL (6.4-8.2)
[2021-02-09 09:53] LABS: URINE BILIRUBIN NEGATIVE (Negative); URINE BLOOD TRACE (Negative); URINE CLARITY CLEAR; URINE COLOR YELLOW; URINE GLUCOSE-RANDOM* NEGATIVE (Negative); URINE KETONES NEGATIVE (Negative); URINE PROTEIN (DIPSTICK) TRACE (Negative); URINE SPECIFIC GRAVITY 1.015 (1.005-1.035); URINE UROBILINOGEN 0.2 E.U./dl (0.2-1.0)
[2021-02-09 09:56] LABS: URINE LEUKOCYTES-REFLEX 1+ (Negative); URINE NITRITE-REFLEX POSITIVE (Negative)
[2021-02-09 10:07] LABS: SQUAMOUS 0-3 Few /LPF (0-3)
[2021-02-09 10:08] LABS: CASTS None Seen /LPF (None Seen); MUCUS 0-3 Light strn/LPF (None Seen)
[2021-02-09 10:12] LABS: CRYSTALS None Seen /LPF (None Seen); URINE RBC 1-2 Rare /HPF (NONE SEEN); URINE WBC-REFLEX 6-15 Few /HPF (0-5); YEAST-REFLEX Present (None Seen)
[2021-02-10] VITALS (24 sets, daily range): BP systolic 101–143; BP diastolic 49–84
[2021-02-10 05:26] LABS: BE(vivo) 13.6 mmol/L (-2 to +3); HCO3 39.7 mmol/L (22.0-26.0); pH 7.461 (7.360-7.450); sO2 95.1 % (92.0-98.0)
[2021-02-10 05:48] LABS: HEMATOCRIT 33.1 % (42.0-52.0); MCH 31.4 pg (26.0-34.0); MCHC 33.1 g/dL (28.0-37.0); MCV 94.7 fL (80.0-100.0); RBC 3.49 mil/uL (4.50-6.00); RDW 15.6 % (10.5-14.5); WBC 10.7 thou/uL (4.0-11.0)
[2021-02-10 06:13] LABS: CALCIUM 8.5 mg/dL (8.5-10.1); CREATININE 0.4 mg/dL (0.7-1.3); POTASSIUM 4.1 mmol/L (3.5-5.1)
[2021-02-11] VITALS (35 sets, daily range): BP systolic 85–137; BP diastolic 38–89
[2021-02-11 05:13] LABS: HEMATOCRIT 35.6 % (42.0-52.0); HEMOGLOBIN 11.6 gm/dL (14.0-18.0); MCH 30.8 pg (26.0-34.0); MCHC 32.4 g/dL (28.0-37.0); RBC 3.75 mil/uL (4.50-6.00); RDW 15.6 % (10.5-14.5); WBC 11.5 thou/uL (4.0-11.0)
[2021-02-11 05:28] LABS: CALCIUM 7.9 mg/dL (8.5-10.1); CREATININE 0.5 mg/dL (0.7-1.3); POTASSIUM 3.5 mmol/L (3.5-5.1)
--- NOTE | 2021-02-11 15:24 | 2DMMODE ---
[facility] [place] [address] 2 D/M-MODE ECHOCARDIOGRAM Name: MANOLO MOSES Room #: 241-P ADM IN M.R.#: [id number] Admission: 01/12/21 Attend Phys: Raimundo Murray Discharge: Date of : 62 Report #: [id number] THIS REPORT FOR: cc: Julian Tatum MD, John H. MD Lundgren, Craig H. MD [facility] ~ APPROVED REPORT Study performed: 02/11/2021 13:04:07 EXAM: Comprehensive 2D, Doppler, and color-flow Echocardiogram Patient Location: ICU Room #: 241 Status: routine BSA: 2.28 HR: 85 bpm Rhythm: Atrial Flutter Other Information Study Quality: Adequate Indications Atrial Fibrillation Hx: HTN, DM, CHF. 2D Dimensions RVDd: 37.06 mm IVSd: 10.92 (7-11mm) LVOT Diam: 22.69 (18-24mm) LVDd: 54.39 mm PWd: 10.59 (7-11mm) Ascending Ao: 31.26 (22-36mm) LVDs: 36.38 (25-40mm) Left Atrium: 34.68 (27-40mm) Aortic Root: 33.75 mm Volumes Left Atrial Volume (Systole) Single Plane 4CH: 90.64 mL Single Plane 2CH: 45.13 mL LA ESV Index: 31.00 mL/m2 Aortic Valve AoV Peak Tunde.: 1.34 m/s AO Peak Gr.: 7.15 mmHg LVOT Max P.27 mmHg LVOT Max V: 1.15 m/s [facility] [address] [place] [address] 2 D/M-MODE ECHOCARDIOGRAM Name: AURELIAMANOLOCLARA DEE Room #: 241-P [facility] IN .R.#: [id number] Admission: 01/12/21 Attend Phys: Raimundo De Paz Discharge: Date of : 62 Report #: [id number] LADI Vmax: 3.47 cm2 Pulmonary Valve PV Peak Tunde.: 1.56 m/s PV Peak Gr.: 9.71 mmHg Tricuspid Valve RAP Estimate: 15.00 mmHg Left Ventricle The left ventricle is normal size. There is normal LV segmental wall motion. There is normal left ventricular wall thickness. The left ventricular systolic function is normal. LVEF is 55-60%. This study is not technically sufficient to allow evaluation of the LV diastolic function due to atrial flutter. Right Ventricle The right ventricle is normal size. The right ventricular systolic function is normal. Atria The left atrium size is normal. The right atrium size is normal. Aortic Valve Aortic valve is not well visualized. No aortic regurgitation is present. There is no aortic valvular stenosis. Mitral Valve The mitral valve is normal in structure. Trace mitral regurgitation. No evidence of mitral valve stenosis. Tricuspid Valve The tricuspid valve is normal in structure. There is no tricuspid valve regurgitation noted. Pulmonic Valve The pulmonary valve is normal in structure. Trace pulmonic regurgitation. Great Vessels The aortic root is normal in size. IVC is dilated and collapses <50% with inspiration. Pericardium There is no pericardial effusion. [facility] [address] [address] 2 D/M-MODE ECHOCARDIOGRAM Name: MANOLO MOSES Room #: 241-P ADM IN .R.#: [id number] Admission: 01/12/21 Attend Phys: Raimundo De Paz Discharge: Date of : 62 Report #: [id number] <Conclusion> Technically difficult study The left ventricular systolic function is normal. There is normal LV segmental wall motion. LVEF is 55-60%. Aortic valve is not well visualized. No aortic regurgitation or stenosis The mitral valve is normal in structure. Trace mitral regurgitation. Pulmonary artery pressure could not be reliably ascertained There is no pericardial effusion. <ELECTRONICALLY SIGNED> By: Miguel Angel Duffy MD, FACC 02/11/21 1523 152 152 Miguel Angel Duffy MD, FACC /INF
[2021-02-12] VITALS (12 sets, daily range): BP systolic 84–120; BP diastolic 55–74
[2021-02-13] VITALS (23 sets, daily range): BP systolic 91–153; BP diastolic 51–81
[2021-02-13 04:42] LABS: HEMATOCRIT 36.2 % (42.0-52.0); HEMOGLOBIN 11.5 gm/dL (14.0-18.0); MCH 30.4 pg (26.0-34.0); MCHC 31.9 g/dL (28.0-37.0); MCV 95.3 fL (80.0-100.0); RBC 3.8 mil/uL (4.50-6.00); RDW 15.3 % (10.5-14.5); WBC 11.7 thou/uL (4.0-11.0)
[2021-02-13 05:08] LABS: CALCIUM 8.6 mg/dL (8.5-10.1); CREATININE 0.4 mg/dL (0.7-1.3); POTASSIUM 4.4 mmol/L (3.5-5.1)
[2021-02-14] VITALS (21 sets, daily range): BP systolic 96–159; BP diastolic 51–87
[2021-02-14 06:44] LABS: HEMATOCRIT 33.4 % (42.0-52.0); HEMOGLOBIN 10.7 gm/dL (14.0-18.0); MCH 30.8 pg (26.0-34.0); MCHC 32.1 g/dL (28.0-37.0); MCV 95.7 fL (80.0-100.0); PLATELET COUNT 187 thou/uL (150-400); RBC 3.49 mil/uL (4.50-6.00); RDW 15.6 % (10.5-14.5); WBC 12.4 thou/uL (4.0-11.0)
[2021-02-14 06:59] LABS: ALBUMIN 2.3 g/dL (3.4-5.0); CALCIUM 8.4 mg/dL (8.5-10.1); CREATININE 0.4 mg/dL (0.7-1.3); POTASSIUM 4.3 mmol/L (3.5-5.1); TOTAL BILIRUBIN 0.8 mg/dL (0.2-1.0); TOTAL PROTEIN 5.5 g/dL (6.4-8.2)
[2021-02-14 09:36] LABS: ABSOLUTE NEUTROPHILS 11.4 thou/uL (1.4-8.2); METAMYELOCYTES 1 %; MYELOCYTES 1 %
[2021-02-14 09:37] LABS: ANISOCYTOSIS 1+
[2021-02-15] VITALS (23 sets, daily range): BP systolic 95–170; BP diastolic 48–90
[2021-02-15 06:33] LABS: HEMATOCRIT 33.9 % (42.0-52.0); HEMOGLOBIN 11.1 gm/dL (14.0-18.0); MCH 30.9 pg (26.0-34.0); MCHC 32.9 g/dL (28.0-37.0); MCV 94.2 fL (80.0-100.0); RBC 3.6 mil/uL (4.50-6.00); RDW 15.8 % (10.5-14.5); WBC 12.3 thou/uL (4.0-11.0)
[2021-02-15 11:45] LABS: CALCIUM 8.5 mg/dL (8.5-10.1); CREATININE 0.4 mg/dL (0.7-1.3); MAGNESIUM 1.9 mg/dL (1.8-2.4); POTASSIUM 3.6 mmol/L (3.5-5.1)
[2021-02-15 13:44] LABS: BE(vivo) 11.9 mmol/L (-2 to +3); HCO3 38.4 mmol/L (22.0-26.0); PCO2 58.7 mmHg (35.0-45.0); PO2 63.5 mmHg (80.0-100.0); pH 7.434 (7.360-7.450); sO2 92.4 % (92.0-98.0)
[2021-02-16] VITALS (22 sets, daily range): BP systolic 93–148; BP diastolic 48–75
[2021-02-16 04:39] LABS: BE(vivo) 12.3 mmol/L (-2 to +3); HCO3 39.1 mmol/L (22.0-26.0); PCO2 61.1 mmHg (35.0-45.0); PO2 64.4 mmHg (80.0-100.0); pH 7.424 (7.360-7.450); sO2 92.4 % (92.0-98.0)
[2021-02-16 06:03] LABS: HEMATOCRIT 34.7 % (42.0-52.0); HEMOGLOBIN 11.5 gm/dL (14.0-18.0); MCH 31.2 pg (26.0-34.0); MCHC 33.2 g/dL (28.0-37.0); MCV 93.7 fL (80.0-100.0); RBC 3.7 mil/uL (4.50-6.00); RDW 15.9 % (10.5-14.5); WBC 13.7 thou/uL (4.0-11.0)
[2021-02-16 06:17] LABS: CALCIUM 8.3 mg/dL (8.5-10.1); CREATININE 0.4 mg/dL (0.7-1.3); POTASSIUM 3.7 mmol/L (3.5-5.1)
[2021-02-16 11:49] LABS: DIRECT BILIRUBIN 0.4 mg/dL (<0.1-0.2); TOTAL BILIRUBIN 1.2 mg/dL (0.2-1.0); TOTAL PROTEIN 5.4 g/dL (6.4-8.2)
[2021-02-17] VITALS (23 sets, daily range): BP systolic 96–161; BP diastolic 49–82
[2021-02-17 04:31] LABS: CALCIUM 8.3 mg/dL (8.5-10.1); CREATININE 0.4 mg/dL (0.7-1.3); POTASSIUM 4.4 mmol/L (3.5-5.1)
[2021-02-17 04:38] LABS: HEMATOCRIT 31.2 % (42.0-52.0); HEMOGLOBIN 10.2 gm/dL (14.0-18.0); MCHC 32.7 g/dL (28.0-37.0); MCV 94.8 fL (80.0-100.0); RBC 3.29 mil/uL (4.50-6.00); RDW 16.4 % (10.5-14.5); WBC 11.9 thou/uL (4.0-11.0)
[2021-02-17 04:54] LABS: BE(vivo) 4.6 mmol/L (-2 to +3); HCO3 33.3 mmol/L (22.0-26.0); PCO2 72.5 mmHg (35.0-45.0); PO2 69.1 mmHg (80.0-100.0); sO2 90.9 % (92.0-98.0)
[2021-02-18] VITALS (36 sets, daily range): BP systolic 95–153; BP diastolic 45–84
[2021-02-18 04:47] LABS: HEMATOCRIT 31.3 % (42.0-52.0); RBC 3.23 mil/uL (4.50-6.00); RDW 16.3 % (10.5-14.5); WBC 11.5 thou/uL (4.0-11.0)
[2021-02-18 04:55] LABS: CALCIUM 8.5 mg/dL (8.5-10.1); CREATININE 0.5 mg/dL (0.7-1.3); POTASSIUM 4.7 mmol/L (3.5-5.1)
[2021-02-19] VITALS (49 sets, daily range): BP systolic 90–156; BP diastolic 43–81
[2021-02-19 05:09] LABS: HEMATOCRIT 29.6 % (42.0-52.0); HEMOGLOBIN 9.6 gm/dL (14.0-18.0); MCH 31.9 pg (26.0-34.0); MCHC 32.6 g/dL (28.0-37.0); MCV 97.9 fL (80.0-100.0); RBC 3.02 mil/uL (4.50-6.00); RDW 16.2 % (10.5-14.5); WBC 8.5 thou/uL (4.0-11.0)
[2021-02-19 05:18] LABS: CALCIUM 8.2 mg/dL (8.5-10.1); CREATININE 0.5 mg/dL (0.7-1.3); POTASSIUM 4.5 mmol/L (3.5-5.1)
[2021-02-20] VITALS (36 sets, daily range): BP systolic 99–152; BP diastolic 54–85
[2021-02-20 04:41] LABS: HEMATOCRIT 29.5 % (42.0-52.0); HEMOGLOBIN 9.5 gm/dL (14.0-18.0); MCH 31.4 pg (26.0-34.0); MCHC 32.3 g/dL (28.0-37.0); MCV 97.2 fL (80.0-100.0); RBC 3.04 mil/uL (4.50-6.00); RDW 15.7 % (10.5-14.5); WBC 10.1 thou/uL (4.0-11.0)
[2021-02-20 05:01] LABS: BUN 22 mg/dL (7-18); CALCIUM 7.4 mg/dL (8.5-10.1); CHLORIDE 103 mmol/L (98-107); CREATININE 0.4 mg/dL (0.7-1.3); GLUCOSE 131 mg/dL (74-106); SODIUM 150 mmol/L (136-145); TRIGLYCERIDE 319 mg/dL (<150)
[2021-02-20 05:03] LABS: CO2 > 45 mmol/L (21-32); POTASSIUM 2.8 mmol/L (3.5-5.1)
[2021-02-20 08:41] LABS: BE(vivo) 25.2 mmol/L (-2 to +3); HCO3 56.8 mmol/L (22.0-26.0); PO2 106.6 mmHg (80.0-100.0); sO2 96.8 % (92.0-98.0)
[2021-02-20 08:43] LABS: PCO2 115.5 mmHg (35.0-45.0)
[2021-02-21] VITALS (41 sets, daily range): BP systolic 90–144; BP diastolic 41–73
[2021-02-22] VITALS (36 sets, daily range): BP systolic 100–150; BP diastolic 50–82
[2021-02-22 04:18] LABS: HEMATOCRIT 27.7 % (42.0-52.0); HEMOGLOBIN 8.9 gm/dL (14.0-18.0); MCH 30.7 pg (26.0-34.0); MCHC 32.1 g/dL (28.0-37.0); MCV 95.5 fL (80.0-100.0); PLATELET COUNT 144 thou/uL (150-400); WBC 12.4 thou/uL (4.0-11.0)
[2021-02-22 04:31] LABS: BUN 27 mg/dL (7-18); CALCIUM 7.6 mg/dL (8.5-10.1); CHLORIDE 101 mmol/L (98-107); CREATININE 0.3 mg/dL (0.7-1.3); GLUCOSE 155 mg/dL (74-106); POTASSIUM 3.5 mmol/L (3.5-5.1); SGOT 80 U/L (15-37); SGPT 290 U/L (30-65); SODIUM 150 mmol/L (136-145); TOTAL BILIRUBIN 1.5 mg/dL (0.2-1.0)
[2021-02-22 04:32] LABS: CO2 > 45 mmol/L (21-32)
[2021-02-22 04:42] LABS: BE(vivo) 21.2 mmol/L (-2 to +3); HCO3 49.1 mmol/L (22.0-26.0); PCO2 77.3 mmHg (35.0-45.0); PO2 69.5 mmHg (80.0-100.0); pH 7.421 (7.360-7.450); sO2 93.3 % (92.0-98.0)
[2021-02-22 05:09] LABS: ABSOLUTE NEUTROPHILS 11.5 thou/uL (1.4-8.2); METAMYELOCYTES 1 %; NUCLEATED RBCS 3 /100WBC
[2021-02-22 05:10] LABS: ANISOCYTOSIS 1+; POLYCHROMASIA 1+
[2021-02-23] VITALS (93 sets, daily range): BP systolic 95–148; BP diastolic 20–81
[2021-02-23 04:51] LABS: BE(vivo) 26.6 mmol/L (-2 to +3); HCO3 55.5 mmol/L (22.0-26.0); PO2 73.1 mmHg (80.0-100.0); sO2 93.7 % (92.0-98.0)
[2021-02-23 04:52] LABS: PCO2 89.5 mmHg (35.0-45.0)
[2021-02-23 04:54] LABS: HEMOGLOBIN 8.8 gm/dL (14.0-18.0); RDW 16.3 % (10.5-14.5)
[2021-02-23 04:57] LABS: HEMATOCRIT 26.9 % (42.0-52.0); MCH 31.8 pg (26.0-34.0); MCHC 32.7 g/dL (28.0-37.0); MCV 97.2 fL (80.0-100.0); PLATELET COUNT 137 thou/uL (150-400); RBC 2.77 mil/uL (4.50-6.00); WBC 10.9 thou/uL (4.0-11.0)
[2021-02-23 05:10] LABS: ALBUMIN 2.2 g/dL (3.4-5.0); BUN 27 mg/dL (7-18); CALCIUM 7.6 mg/dL (8.5-10.1); CHLORIDE 101 mmol/L (98-107); CREATININE 0.4 mg/dL (0.7-1.3); GLUCOSE 164 mg/dL (74-106); POTASSIUM 3.7 mmol/L (3.5-5.1); SGOT 84 U/L (15-37); SGPT 316 U/L (30-65); SODIUM 150 mmol/L (136-145); TOTAL BILIRUBIN 1.9 mg/dL (0.2-1.0); TOTAL PROTEIN 5.1 g/dL (6.4-8.2)
[2021-02-23 05:26] LABS: CO2 > 45 mmol/L (21-32)
[2021-02-23 08:22] LABS: BE(vivo) 30.2 mmol/L (-2 to +3); HCO3 58.3 mmol/L (22.0-26.0); pH 7.487 (7.360-7.450); sO2 88.1 % (92.0-98.0)
[2021-02-23 08:23] LABS: PCO2 78.8 mmHg (35.0-45.0); PO2 53.7 mmHg (80.0-100.0)
[2021-02-23 08:55] LABS: ABSOLUTE NEUTROPHILS 10.1 thou/uL (1.4-8.2); NUCLEATED RBCS 5 /100WBC; PLATELET ESTIMATE NORMAL
[2021-02-24] VITALS (24 sets, daily range): BP systolic 107–157; BP diastolic 48–90
[2021-02-24 13:36] LABS: HEMATOCRIT 30.2 % (42.0-52.0); HEMOGLOBIN 9.6 gm/dL (14.0-18.0); MCH 30.9 pg (26.0-34.0); MCHC 31.9 g/dL (28.0-37.0); RBC 3.12 mil/uL (4.50-6.00); RDW 16.8 % (10.5-14.5); WBC 14.8 thou/uL (4.0-11.0)
[2021-02-24 13:40] LABS: BUN 26 mg/dL (7-18); CALCIUM 8.1 mg/dL (8.5-10.1); CHLORIDE 98 mmol/L (98-107); CREATININE 0.4 mg/dL (0.7-1.3); GLUCOSE 245 mg/dL (74-106); MAGNESIUM 2.2 mg/dL (1.8-2.4); POTASSIUM 4.1 mmol/L (3.5-5.1); SODIUM 145 mmol/L (136-145)
[2021-02-24 13:44] LABS: CO2 > 45 mmol/L (21-32)
[2021-02-25] VITALS (87 sets, daily range): BP systolic 61–153; BP diastolic 27–79
[2021-02-25 03:56] LABS: BE(vivo) 25.6 mmol/L (-2 to +3); HCO3 53.2 mmol/L (22.0-26.0); PO2 80.7 mmHg (80.0-100.0); pH 7.464 (7.360-7.450); sO2 95.9 % (92.0-98.0)
[2021-02-25 03:58] LABS: PCO2 75.8 mmHg (35.0-45.0)
[2021-02-25 05:01] LABS: HEMATOCRIT 27.4 % (42.0-52.0); HEMOGLOBIN 8.8 gm/dL (14.0-18.0); MCH 30.9 pg (26.0-34.0); MCHC 32.1 g/dL (28.0-37.0); MCV 96.5 fL (80.0-100.0); PLATELET COUNT 160 thou/uL (150-400); RBC 2.84 mil/uL (4.50-6.00); RDW 16.5 % (10.5-14.5); WBC 13.1 thou/uL (4.0-11.0)
[2021-02-25 05:31] LABS: ALBUMIN 2.4 g/dL (3.4-5.0); BUN 24 mg/dL (7-18); CALCIUM 8.1 mg/dL (8.5-10.1); CHLORIDE 98 mmol/L (98-107); CREATININE 0.4 mg/dL (0.7-1.3); GLUCOSE 264 mg/dL (74-106); POTASSIUM 3.8 mmol/L (3.5-5.1); SGOT 52 U/L (15-37); SGPT 302 U/L (16-63); SODIUM 142 mmol/L (136-145); TOTAL BILIRUBIN 1.6 mg/dL (0.2-1.0); TOTAL PROTEIN 5.4 g/dL (6.4-8.2)
[2021-02-25 05:45] LABS: CO2 > 45 mmol/L (21-32)
[2021-02-25 08:51] LABS: ABSOLUTE NEUTROPHILS 12.4 thou/uL (1.4-8.2); NUCLEATED RBCS 1 /100WBC; PLATELET ESTIMATE NORMAL
[2021-02-26] VITALS (116 sets, daily range): BP systolic 44–141; BP diastolic 15–111
[2021-02-26 06:21] LABS: HEMATOCRIT 34.8 % (42.0-52.0)
[2021-02-26 06:23] LABS: MCH 30.8 pg (26.0-34.0); MCHC 31.9 g/dL (28.0-37.0); MCV 96.7 fL (80.0-100.0); RBC 3.6 mil/uL (4.50-6.00); RDW 17.7 % (10.5-14.5); WBC 8.6 thou/uL (4.0-11.0)
[2021-02-26 06:28] LABS: HEMOGLOBIN 11.1 gm/dL (14.0-18.0)
[2021-02-26 06:32] LABS: CALCIUM 8.4 mg/dL (8.5-10.1); POTASSIUM 5.6 mmol/L (3.5-5.1)
[2021-02-26 06:40] LABS: CREATININE 1.4 mg/dL (0.7-1.3)
[2021-02-26 06:42] LABS: BE(vivo) 9.9 mmol/L (-2 to +3); HCO3 38.9 mmol/L (22.0-26.0); PCO2 77.9 mmHg (35.0-45.0); PO2 56.5 mmHg (80.0-100.0); pH 7.316 (7.360-7.450); sO2 85.4 % (92.0-98.0)
== END 2021-02-26 12:10 | DRG 4 ==
LOC: ER 01:55 → ICU 04:06 → EROBS 04:06 → ICU 04:48 → 3W 01-18 18:19 → ICU 01-22 22:43
PROVIDERS: Emergency Medicine; Hospitalist; Internal Medicine; Internal Medicine Pulmonary Disease; Nurse Practitioner; Nurse Practitioner Family; Pediatrics; Specialist; ADMIT Hospitalist; ATTEND Hospitalist
PROC: XW033E5 Introduction of Remdesivir Anti-infective into Peripheral Vein, Percutaneous Approach, New Technology Group 5 (ICD-10-PCS; 2021-01-12)
PROC: 02HV33Z Insertion of Infusion Device into Superior Vena Cava, Percutaneous Approach (ICD-10-PCS; 2021-01-12)
PROC: 5A09357 Assistance with Respiratory Ventilation, Less than 24 Consecutive Hours, Continuous Positive Airway Pressure (ICD-10-PCS; principal; 2021-01-20)
PROC: 5A0935A Assistance with Respiratory Ventilation, Less than 24 Consecutive Hours, High Flow/Velocity Cannula (ICD-10-PCS; 2021-01-21)
PROC: 5A09357 Assistance with Respiratory Ventilation, Less than 24 Consecutive Hours, Continuous Positive Airway Pressure (ICD-10-PCS; 2021-01-21)
PROC: 5A09357 Assistance with Respiratory Ventilation, Less than 24 Consecutive Hours, Continuous Positive Airway Pressure (ICD-10-PCS; 2021-01-22)
PROC: 5A0935A Assistance with Respiratory Ventilation, Less than 24 Consecutive Hours, High Flow/Velocity Cannula (ICD-10-PCS; 2021-01-22)
PROC: 5A09457 Assistance with Respiratory Ventilation, 24-96 Consecutive Hours, Continuous Positive Airway Pressure (ICD-10-PCS; 2021-01-23)
PROC: 0BJ08ZZ Inspection of Tracheobronchial Tree, Via Natural or Artificial Opening Endoscopic (ICD-10-PCS; 2021-01-25)
PROC: 0BH18EZ Insertion of Endotracheal Airway into Trachea, Via Natural or Artificial Opening Endoscopic (ICD-10-PCS; 2021-01-25)
PROC: 5A1955Z Respiratory Ventilation, Greater than 96 Consecutive Hours (ICD-10-PCS; 2021-01-25)
PROC: 0DH63UZ Insertion of Feeding Device into Stomach, Percutaneous Approach (ICD-10-PCS; 2021-02-12)
PROC: 0B110F4 Bypass Trachea to Cutaneous with Tracheostomy Device, Open Approach (ICD-10-PCS; 2021-02-12)
PROC: 02HV33Z Insertion of Infusion Device into Superior Vena Cava, Percutaneous Approach (ICD-10-PCS; 2021-02-18)
PROC: B548ZZA Ultrasonography of Superior Vena Cava, Guidance (ICD-10-PCS; 2021-02-18)
DX: A41.51 Sepsis due to Escherichia coli [E. coli] (principal); U07.1 COVID-19; I26.99 Other pulmonary embolism without acute cor pulmonale; J12.82 Pneumonia due to coronavirus disease 2019; J80 Acute respiratory distress syndrome; I50.33 Acute on chronic diastolic (congestive) heart failure; E46 Unspecified protein-calorie malnutrition; I48.92 Unspecified atrial flutter; Z68.41 Body mass index [BMI] 40.0-44.9, adult; I42.9 Cardiomyopathy, unspecified; R04.2 Hemoptysis; I48.20 Chronic atrial fibrillation, unspecified; J91.8 Pleural effusion in other conditions classified elsewhere; G93.40 Encephalopathy, unspecified; E87.0 Hyperosmolality and hypernatremia; R57.9 Shock, unspecified; G47.33 Obstructive sleep apnea (adult) (pediatric); I11.0 Hypertensive heart disease with heart failure; E11.9 Type 2 diabetes mellitus without complications; A41.1 Sepsis due to other specified staphylococcus; E66.01 Morbid (severe) obesity due to excess calories; D69.6 Thrombocytopenia, unspecified; D64.9 Anemia, unspecified; E55.9 Vitamin D deficiency, unspecified; E53.8 Deficiency of other specified B group vitamins; F10.11 Alcohol abuse, in remission; J44.9 Chronic obstructive pulmonary disease, unspecified; E78.5 Hyperlipidemia, unspecified; Z88.0 Allergy status to penicillin; Z79.899 Other long term (current) drug therapy
CPT/HCPCS: 10078; 10879; 27000; 50101; 50386; 50403; 50455; 56525; 56668; 56760; 62110; 62900; 65129